=== PATIENT | female | born 1980 | race Caucasian/White ===

== ENCOUNTER 2020-06-21 15:48 | Outpatient (CLI) | payer BC | END 2020-06-21 15:49 | disposition home or self-care (01) | LOC: CTENTCT 15:48 | PROVIDERS: ATTEND Specialist | DX: J32.8 Other chronic sinusitis (principal) | CPT/HCPCS: 70486 ==

== ENCOUNTER 2020-09-11 13:33 | Outpatient (CLI) | payer BC ==
[2020-09-11 16:52] LABS: BHCG - Serum Negative (NEGATIVE); Pregs Control Background? CLEAR/WHITE (CLR/WHITE); Pregs Control Bar Appear? YES (CONTROL BAR)
[2020-09-12 11:14] LABS: SARS-CoV-2 PCR by NAA Not Detected (NotDetected)
== END 2020-09-11 13:34 | disposition home or self-care (01) ==
LOC: LABBT 13:33
PROVIDERS: ATTEND Specialist
DX: Z01.812 Encounter for preprocedural laboratory examination (principal); Z20.822 Contact with and (suspected) exposure to COVID-19
CPT/HCPCS: 84703; 85014; U0003; U0005

== ENCOUNTER 2020-09-14 06:53 | Day surgery (SDC) | payer BC ==
[2020-09-13 11:03] VITALS: BMI 36.9
[2020-09-14] MEDS ORDERED: AFRIN NASAL MIST 15 ML BOT ONE ×2 (08:01→08:34)
[2020-09-14] MEDS ORDERED: Bacitracin Zinc Ointment 30 gm TUBE ONE (08:34)
[2020-09-14] MEDS ORDERED: Lidocaine 1% w/Epinephrine 1:100K 20 ML VIAL ONE (08:34)
[2020-09-14] MEDS ORDERED: Fentanyl 100 MCG/2 ML VIAL ONE ×3 (08:38→10:37)
[2020-09-14] MEDS ORDERED: Morphine 2 MG/ML VIAL ONE (08:38)
[2020-09-14] MEDS ORDERED: Lidocaine 1% PF 5 ML VIAL ONE (08:50)
[2020-09-14] MEDS ORDERED: PROPOFOL 200 MG/20 ML VIAL ONE (08:50)
[2020-09-14] MEDS ORDERED: Dexamethasone 20 MG/5 ML VIAL ONE (08:50)
[2020-09-14] MEDS ORDERED: Ondansetron PF 4 MG/2 ML Vial ONE (08:50)
[2020-09-14] MEDS ORDERED: Hydrocodone-Acetamin 15 ML UDCUP ONE (13:21)
== END 2020-09-14 13:25 | disposition home or self-care (01) ==
LOC: SDC 06:53
PROVIDERS: ATTEND Specialist
PROC: 09BS8ZZ Excision of Right Frontal Sinus, Via Natural or Artificial Opening Endoscopic (ICD-10-PCS; principal; 2020-09-14)
PROC: 09BL8ZZ Excision of Nasal Turbinate, Via Natural or Artificial Opening Endoscopic (ICD-10-PCS; principal; 2020-09-14)
PROC: 099Q8ZZ Drainage of Right Maxillary Sinus, Via Natural or Artificial Opening Endoscopic (ICD-10-PCS; principal; 2020-09-14)
PROC: 099R8ZZ Drainage of Left Maxillary Sinus, Via Natural or Artificial Opening Endoscopic (ICD-10-PCS; principal; 2020-09-14)
PROC: 09SM0ZZ Reposition Nasal Septum, Open Approach (ICD-10-PCS; principal; 2020-09-14)
PROC: 09BT8ZZ Excision of Left Frontal Sinus, Via Natural or Artificial Opening Endoscopic (ICD-10-PCS; principal; 2020-09-14)
DX: J32.0 Chronic maxillary sinusitis (principal); J34.2 Deviated nasal septum; J34.3 Hypertrophy of nasal turbinates; Z88.8 Allergy status to other drugs, medicaments and biological substances
CPT/HCPCS: J2270; J3010

== ENCOUNTER 2021-05-28 07:18 | Emergency (ER) | payer BC, SELFPAY | END 2021-05-28 09:41 | disposition home or self-care (01) | LOC: ERS 07:18 | DX: J30.9 Allergic rhinitis, unspecified (principal) | CPT/HCPCS: 99281 ==

== ENCOUNTER 2022-06-14 09:08 | Outpatient (CLI) | payer BC, OTHER | END 2022-06-14 09:09 | disposition home or self-care (01) | LOC: BICMAMMO 09:08 | PROVIDERS: ATTEND Physician Assistant | DX: Z12.31 Encounter for screening mammogram for malignant neoplasm of breast (principal) | CPT/HCPCS: 77063; 77067 ==

== ENCOUNTER 2022-07-24 06:56 | Outpatient (CLI) | payer BC, OTHER | END 2022-07-24 06:57 | disposition home or self-care (01) | LOC: BICULT 06:56 | PROVIDERS: ATTEND Family Medicine | DX: R74.01 Elevation of levels of liver transaminase levels (principal) | CPT/HCPCS: 76705 ==